=== PATIENT | male | born 1955 | race Two or more races ===

== ENCOUNTER 2022-08-27 06:20 | Day surgery (SDC) | payer OTHER ==
[~2022-08-27 06:20] MED LIST: AMLODIPINE BESYL5 MG PO; COLACE100 MG PO; CRESTOR5 MG PO; LOSARTAN POTASS50 MG PO; NEURONTIN300 MG PO; PERCOCET 5-3251 EACH PO; TAMS0.4C PO
== END 2022-08-27 12:30 | disposition home or self-care (01) ==
LOC: AMB-ENDOS 06:20 → CIR.AMB 13:00
PROVIDERS: ATTEND Surgery
DX: D12.2 Benign neoplasm of ascending colon (principal); K62.5 Hemorrhage of anus and rectum; K57.30 Diverticulosis of large intestine without perforation or abscess without bleeding; K62.89 Other specified diseases of anus and rectum

== ENCOUNTER 2023-06-08 12:00 | Inpatient (IN) | payer OTHER ==
[~2023-06-08] VITALS: Ht 177.8 cm; Wt 89.8 kg
[2023-06-09] MEDS ORDERED: TAMS0.4C PO (08:54)
[2023-06-14] MEDS ORDERED: CEFTRIAXONE SODIUM 2,000 MG VIAL ONE (11:23)
[2023-06-14] MEDS ORDERED: METRONIDAZOLE/SODIUM CHLORIDE 500 MG/100 ML PIGGYBACK IV ONE (11:23)
[2023-06-14] MEDS ORDERED: LIDOCAINE HCL/EPINEPHRINE 20 ML VIAL IJ ONE (12:20)
[2023-06-14] MEDS ORDERED: BUPIVACAINE HCL/PF 0.5% 30ML ML ONE (12:20)
[2023-06-14] MEDS ORDERED: LIDOCAINE HCL/EPINEPHRINE 10 ML VIAL IJ SCH (13:45)
[2023-06-14] MEDS ORDERED: BUPIVACAINE HCL/PF 0.5% 1ML IJ SCH (13:45)
[2023-06-14] MEDS ORDERED: METRONIDAZOLE/SODIUM CHLORIDE 500 MG/100 ML PIGGYBACK IV SCH (13:45)
[2023-06-14] MEDS ORDERED: CEFTRIAXONE SODIUM 2,000 MG VIAL IV SCH (13:45)
[2023-06-14] MEDS ORDERED: DEXTROSE 50 % IN WATER 0.5 G/ML DISP.SYRIN IV PRN (15:30)
[2023-06-14] MEDS ORDERED: OxyCODONE HCL 5 MG TABLET (ROXICODONE) PO PRN (15:30)
[2023-06-14] MEDS ORDERED: MORPHINE SULFATE 4 MG/ML CARTRIDGE IV PRN (15:30)
[2023-06-14] MEDS ORDERED: ONDANSETRON HCL 2 MG/ML VIAL IV PRN (15:30)
[2023-06-14] MEDS ORDERED: RINGERS SOLUTION,LACTATED 1,000 ML IV SCH (15:30)
[2023-06-14] MEDS ORDERED: INTEGRA PLUS C1 EAC1 (16:07)
[2023-06-14] MEDS ORDERED: LEVETIRACETAM500 MG (16:07)
[2023-06-14] MEDS ORDERED: LOSARTAN POTASS25 MG (16:07)
[2023-06-14] MEDS ORDERED: ROSUVASTATIN CA10 MG (16:08)
[2023-06-14] MEDS ORDERED: POLYETHYLENE GLYCOL 3350 17 GM BLIST.PACK PO SCH (17:00)
[2023-06-14] MEDS ORDERED: HYOSCYAMINE SULFATE 0.125 MG TAB.SUBL SL SCH (17:00)
[2023-06-14] MEDS ORDERED: GABAPENTIN 300 MG CAPSULE PO SCH (17:00)
[2023-06-14 18:25] LABS: HEMATOCRIT 42.7 % (39.0-48.0); HEMOGLOBIN 14.6 g/dL (13-16.00); MEAN CELL VOLUME 93.7 fL (80.0-100.00); MEAN CORPUSCULAR HGB CONC 34.1 g/dl (32.0-36.0); PLATELET COUNT 215 K/uL (150-450); RED BLOOD COUNT 4.55 M/uL (4.00-6.00); RED CELL DISTRIBUTION WIDTH 13.4 % (11.5-14.5)
[2023-06-14] MEDS ORDERED: ENALAPRILAT DIHYDRATE 1.25 MG/ML VIAL IV PRN (18:30)
[2023-06-14 18:54] LABS: ALBUMIN 3.5 gm/dL (3.4-5.0); CALCIUM 8.7 mg/dL (8.5-10.1); CREATININE SERUM 0.63 mg/dL (0.70-1.30); GFR 127.42; MAGNESIUM 2.5 mg/dL (1.8-2.4); PHOSPHOROUS 3.1 mg/dL (2.5-4.9); POTASSIUM 3.72 mEq/L (3.5-5.1)
[2023-06-14] MEDS ORDERED: ACETAMINOPHEN 500 MG GEL..CAP PO SCH (20:00)
[2023-06-14] MEDS ORDERED: CELECOXIB 200 MG CAPSULE PO SCH (21:00)
[2023-06-14] MEDS ORDERED: LOSARTAN POTASSIUM 25 MG TABLET PO SCH (21:00)
[2023-06-14] MEDS ORDERED: TAMSULOSIN HCL 0.4 MG CAP PO SCH (21:00)
[2023-06-14] MEDS ORDERED: FAMOTIDINE/PF 20 MG/2 ML VIAL IV PUSH SCH (21:00)
[2023-06-14] MEDS ORDERED: LevETIRAcetam 500 MG TAB. PO SCH (21:00)
[2023-06-15] MEDS ORDERED: FAMOTIDINE/PF 20 MG/2 ML VIAL ONE (01:57)
[2023-06-15] MEDS ORDERED: GABAPENTIN 300 MG CAPSULE PO ONE (01:57)
[2023-06-15 07:43] LABS: HEMATOCRIT 40.8 % (39.0-48.0); MEAN CELL VOLUME 91.9 fL (80.0-100.00); MEAN CORPUSCULAR HEMOGLOBIN 31.5 pg (27.00-32.0); MEAN CORPUSCULAR HGB CONC 34.3 g/dl (32.0-36.0); PLATELET COUNT 199 K/uL (150-450); RED BLOOD COUNT 4.44 M/uL (4.00-6.00); RED CELL DISTRIBUTION WIDTH 13.3 % (11.5-14.5)
[2023-06-15 08:20] LABS: ALBUMIN 3.2 gm/dL (3.4-5.0); CALCIUM 8.5 mg/dL (8.5-10.1); CREATININE SERUM 0.7 mg/dL (0.70-1.30); GFR 112.83; MAGNESIUM 2.6 mg/dL (1.8-2.4); PHOSPHOROUS 2.8 mg/dL (2.5-4.9); POTASSIUM 3.61 mEq/L (3.5-5.1)
[2023-06-15 08:52] LABS: ABG PH 7.433 (7.35-7.45); ABG pCO2 37.3 mmHg (35-45)
[2023-06-15 08:53] LABS: ABG PO2 79.9 mmHg (80-100); BASE EXCESS 0.4 mmol/l; BICARBONATE 24.4 mmol/l (23-25); SaO2 96.1 %; Tco2 25.5 mmol/l; allen test SATISFACTORY; o2 21 %; puncture site RADIAL RIGHT
[2023-06-15] MEDS ORDERED: ENOXAPARIN SODIUM 40 MG/0.4 ML SYRINGE SUBCUTANEO SCH (17:00)
[2023-06-15] MEDS ORDERED: PATIENTS OWN MEDICATION (MEDICAMENTO EN PISO) PO SCH (17:00)
[2023-06-16 08:41] LABS: HEMATOCRIT 42.8 % (39.0-48.0); HEMOGLOBIN 14.7 g/dL (13-16.00); MEAN CELL VOLUME 92.6 fL (80.0-100.00); MEAN CORPUSCULAR HEMOGLOBIN 31.8 pg (27.00-32.0); MEAN CORPUSCULAR HGB CONC 34.3 g/dl (32.0-36.0); PLATELET COUNT 193 K/uL (150-450); RED BLOOD COUNT 4.63 M/uL (4.00-6.00); RED CELL DISTRIBUTION WIDTH 13.5 % (11.5-14.5)
[2023-06-16] MEDS ORDERED: ENOXAPARIN SODIUM 40 MG/0.4 ML SYRINGE SUBCUTANEO SCH (09:00)
[2023-06-16 09:03] LABS: CALCIUM 9.1 mg/dL (8.5-10.1); CREATININE SERUM 0.73 mg/dL (0.70-1.30); GFR 107.5; MAGNESIUM 2.3 mg/dL (1.8-2.4); PHOSPHOROUS 2.3 mg/dL (2.5-4.9); POTASSIUM 3.6 mEq/L (3.5-5.1)
[2023-06-16] MEDS ORDERED: HYOSCYAMINE0.125 M1 SL (11:57)
== END 2023-06-16 13:21 | disposition home or self-care (01) | DRG 330 ==
LOC: SURH 06-14 06:22 → O/R 06-14 06:22 → SURG 06-14 07:00 → SURH 06-15 00:06
PROVIDERS: Internal Medicine Geriatric Medicine; ADMIT Surgery; ATTEND Surgery
PROC: 07BB4ZZ Excision of Mesenteric Lymphatic, Percutaneous Endoscopic Approach (ICD-10-PCS; 2023-06-14)
PROC: 0DTF4ZZ Resection of Right Large Intestine, Percutaneous Endoscopic Approach (ICD-10-PCS; principal; 2023-06-14 07:00)
PROC: 4A12X4Z Monitoring of Cardiac Electrical Activity, External Approach (ICD-10-PCS; 2023-06-15)
DX: D12.2 Benign neoplasm of ascending colon (principal); K62.5 Hemorrhage of anus and rectum; K63.5 Polyp of colon; R59.0 Localized enlarged lymph nodes; K62.89 Other specified diseases of anus and rectum; I11.9 Hypertensive heart disease without heart failure; G47.30 Sleep apnea, unspecified